=== PATIENT | male | born 1925 | race Caucasian/White ===

== ENCOUNTER 2016-07-03 21:00 | Observation (INO) ==
[2016-07-03] MEDS ORDERED: NITROGLYCERIN SL 0.4 MG TABLET SL STA (21:37)
[2016-07-03 22:05] LABS: Basophils % 0.7 % (0.0-0.8); Eosinophils # 0.2 10*3/uL (0.0-0.87); Eosinophils % 3.8 % (0.00-10.9); Hematocrit 36.8 VOL% (42.0-52.0); Hemoglobin 12.4 GM/DL (14.0-18.0); Immature Granulocytes % 0.2 %; Immature Granulocytes Absolute 0.01 #; Lymphocytes # 1.2 10*3/uL (1.4-4.0); Lymphocytes % 26.5 % (21.2-54.2); Mean Corpuscular HGB Conc 33.7 GM/DL (32-36); Mean Corpuscular Hemoglobin 32 PG (27-34); Mean Corpuscular Volume 93.4 FL (87-102); Mean Platelet Volume 11.6 FL (9.6-12.0); Monocytes # 0.5 10*3/uL (0.11-0.8); Monocytes % 10.8 % (1.7-12.7); NRBC # 0.02 10*3/uL; Neutrophils # 2.6 10*3/uL (1.4-7.4); Platelet Count 179 T/CUMM (130-400); Red Blood Count 3.94 MC/CUMM (3.8-5.5); Red Cell Distribution Width 13.3 % (9.3-17.3); White Blood Count 4.5 T/CUMM (4-12)
[2016-07-03 22:23] LABS: Calcium 9.2 MG/DL (8.5-10.1); Osmolality,Calculated 287.7 MOS/KG (273-304); Potassium 4.6 MMOL/L (3.5-5.1)
[2016-07-03 22:26] LABS: Troponin I Only 0.03 NG/ML (0.00-0.045)
[2016-07-03] MEDS ORDERED: NITROGLYCERIN 2% OINT 1 INCH/GM PACK TOP STA (23:25)
[2016-07-03] MEDS ORDERED: NITROGLYCERIN 2% OINT 1 INCH/GM PACK TOP ONE (23:27)
[2016-07-03] MEDS ORDERED: MAGNESIUM SULF RIDER 4 GM in PREMIX 1 EACH IV PRN (23:36)
[2016-07-03] MEDS ORDERED: GLUCAGON 1 MG VIAL IM PRN (23:36)
[2016-07-03] MEDS ORDERED: DEXTROSE 50% 25 GM/50 ML VIAL IV PRN (23:36)
[2016-07-03] MEDS ORDERED: MAGNESIUM SULF RIDER 2 GM in PREMIX 1 EACH IV PRN (23:36)
[2016-07-03] MEDS ORDERED: ONDANSETRON 4 MG/2 ML VIAL IV PRN (23:36)
--- NOTE | 2016-07-03 23:47 | Emergency Department Note ---
Miguel Angel Carbajal Manpreet, am scribing for, and in the presence of, Diana Baez DO 21:54. ISasha Whitney, DO, personally performed the services described in this documentation, ascribed by Collin Micehlle in my presence, and it is both accurate and complete [id number] . Arrival - Arrival Chief Complaint: Chest Pain Stated Complaint: chest pains ED Nursing Triage Note: c/o left chest wall pain that radiates to let arm. denies n/v. had mi with one stent placed in 2016. has taken 2 nitro with relief. Mode of Arrival: Wheelchair Limitations: No Limitations Source: Patient Time Seen by Provider: 07/03/16 21:36 - History of Present Illness HPI Narrative: Pt is a 89 y/o male, with PMHx of CHF, CAD, HTN, UT, IDDM, and Dyslipidemia, who reports to the ED with CC of chest pressure radiating to LUE at 1930. He reports the pain has been intermittent but is now sore and still having bouts of pain. Denies nausea, SOB, or diaphoresis. Pt was in hospital for UT 3 months ago and states the pain is similar to his previous episode of UT but with the pain is more severe this time. Pt denies Abd pain, nausea, and fever. Pt is complaint with his medications and takes an ASA qd. Nitro has relieved his pain earlier today x2. He is still reporting chest soreness. No other pains, complaints reported to ED. Onset (ago): hour(s) Consistency: constant Severity: moderate, severe Severity scale (1-10): 4 Quality: other (Pressurized) Allergies/Adverse Reactions: Allergies Allergy/AdvReac Type Severity Reaction Status Date / Time No Known Allergies Allergy Unverified 03/03/16 22:45 Home Medications: Home Medications Medication Instructions Recorded Confirmed Type Carvedilol [Coreg] 6.25 mg PO BID 03/03/16 03/03/16 History Ezetimibe [Zetia] 10 mg PO DAILY 03/03/16 03/03/16 History Gabapentin 300 mg PO DAILY 03/03/16 03/03/16 History Lisinopril 20 mg PO DAILY 03/03/16 03/03/16 History Aspirin EC Tab 81 mg PO DAILY #30 tablet 03/07/16 Rx Isosorbide Mononitrate [Imdur] 30 mg PO DAILY #30 tablet 03/07/16 Rx Nitroglycerin Sl Tab [Nitrostat] 0.4 mg SL Q5M PRN #1 bottle 03/07/16 Rx Ranolazine [Ranexa] 500 mg PO BID #60 tablet 03/07/16 Rx Spironolactone [Aldactone] 25 mg PO DAILY #30 tablet 03/07/16 Rx Ticagrelor [Brilinta] 90 mg PO BID #60 tablet 03/07/16 Rx Review of System - Review of System 12 point system: reviewed and no additional remarkable complaints except as stated - Review of System Constitutional: Absent: chills, diaphoresis, fever Respiratory: Present: respiratory distress. Absent: cough Cardiovascular: Present: chest pain Gastrointestinal: Absent: abdominal pain, nausea, vomiting, diarrhea Musculoskeletal: Present: arm pain (Right arm pain). Absent: back pain Neurological: Absent: headache, weakness Medical,Surgical,& Family Hx - Medical History Cardio: History of: CHF, CAD, Hypertension, UT (10 years ago), PVD Endocrine: History of: Diabetes Mellitus (IDDM), Dyslipidemia Respiratory: History of: Bronchitis Other: History of: Cancer (skin cancer removed) - Surgical History HEENT Surgeries: Surgical HX of: Eye Surgery (cataracts removed) Abdominal Surgeries: Surgical HX of: Appendectomy, Cholecystectomy, Hernia Repair - Social History Smoking Status: Never smoker Frequency of Alcohol Use: None Type of Drug Use: None Exam Vital Signs: Vital Signs Temperature 98.0 F 07/03/16 21:09 Pulse Rate 7 L 07/03/16 21:09 Respiratory Rate 20 07/03/16 21:09 Blood Pressure 202/90 07/03/16 21:09 O2 Sat by Pulse Oximetry 99 07/03/16 21:09 - General Exam limited due to: ALOC General appearance: alert, in no apparent distress - Head Head exam: Present: atraumatic, normocephalic, normal inspection - Eye Eye exam: Present: normal appearance, PERRL, EOMI - ENT ENT exam: Present: normal exam, normal oropharynx, mucous membranes moist, TM's normal bilaterally - Neck Neck exam: Present: normal inspection, full ROM, trachea midline. Absent: tenderness - Chest Chest inspection: Present: normal inspection, symmetric chest wall rise. Absent : tenderness - Respiratory Respiratory exam: Present: normal lung sounds bilaterally. Absent: accessory muscle use, rales, respiratory distress, wheezes - Cardiovascular Cardiovascular exam: Present: regular rate, normal rhythm, normal heart sounds. Absent: murmur, rubs, gallop - Abdominal Exam Abdominal exam: Present: soft, normal bowel sounds. Absent: distention, tenderness, guarding - Extremities Exam Extremities exam: Present: full ROM. Absent: normal inspection, tenderness - Expanded Upper Left Upper Extremity Arm exam: Present: ecchymosis Forearm/Wrist exam: Present: ecchymosis - Back Exam Back exam: Present: normal inspection, full ROM. Absent: tenderness - Neurological Exam Neurological exam: Present: alert, oriented X3, CN II-XII intact - Psychiatric Psychiatric exam: Present: normal affect, normal mood - Skin Skin exam: Present: warm, dry, intact, normal color. Absent: pallor Course Course Narrative: Concern for unstable angina versus true ACS and STEMI. Lab work shows troponin negative. However he did have another chest pain episode in the ED which was witnessed by the nurses looked very concerning his heart rate and blood pressure went elevated. He did respond to nitroglycerin. We will apply nitro paste. He will be admitted to Dr. Chu the runstitching machine operator on-call. He currently takes Carvediolol 2 times a day. Will be admitted - Reevaluation(s) Reevaluation #1: Patient is currently having chest pain. Looks very uncomfortable blood pressure and heart rate are elevated will give nitro nitroglycerin does relieve pain. Results - Labs CBC & BMP: 07/03/16 21:38 07/03/16 21:38 Lab Results: I have reviewed the patients labs Labs: Laboratory Tests 07/03/16 21:38 WBC 4.5 RBC 3.94 Hgb 12.4 L Hct 36.8 L Lymph # (Auto) 1.2 L Laboratory Tests 07/03/16 21:38 Sodium 138 Potassium 4.6 Chloride 104 Carbon Dioxide 26 BUN 21 H Creatinine 1.40 H Glucose 273 H - EKG EKG results: interpreted by ERMD - Impressions Patient is in sinus rhythm. He has Q waves in the inferior leads. ST depression in V3 V4 with no reciprocal changes noted. - Diagnostic Findings Procedure: Chest x-ray: image reviewed by me, report reviewed by me (No acute abnormalities) Disposition Clinical Impression: Unstable angina pectoris Case discussed with: patient Disposition: Still a Patient Condition: Stable
[2016-07-04 01:49] LABS: Risk Ratio 2.68; VLDL CHOLESTEROL 25.8 MG/DL
--- NOTE | 2016-07-04 06:53 | XRay Report ---
History: Chest pain Date: 07/03/2016 Study: Chest x-ray single view portable Comparison exam: March 04, 2016 chest x-ray There is mild cardiomegaly. The mediastinal contours are unchanged. The pulmonary vasculature is not engorged. There is some chronic lung disease in the apices. There is no definite acute infiltrate. There are probable underlying emphysematous changes. There is no gross pleural effusion. Osseous structures are similar. Impression: No definite acute process. Stable mild cardiomegaly. Chronic lung changes PROCEDURE INTERPRETED AT [facility] DEPARTMENT OF RADIOLOGY Final Report Signed by: Dr. Aster English
--- NOTE | 2016-07-04 07:52 | EKG Report ---
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
[2016-07-04] MEDS: PANTOPRAZOLE 40 MG TABLET PO SCH (08:43)
[2016-07-04] MEDS: ENOXAPARIN 40 MG/0.4 ML SYRINGE SUBCUT SCH (08:43)
--- NOTE | 2016-07-04 08:58 | EKG Report ---
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
[2016-07-04 09:22] LABS: Basophils # 0.1 10*3/uL (0.0-0.2); Basophils % 0.9 % (0.0-0.8); Eosinophils # 0.2 10*3/uL (0.0-0.87); Eosinophils % 4.2 % (0.00-10.9); Hematocrit 35.7 VOL% (42.0-52.0); Hemoglobin 12.1 GM/DL (14.0-18.0); Immature Granulocytes % 0.4 %; Immature Granulocytes Absolute 0.02 #; Lymphocytes # 1.2 10*3/uL (1.4-4.0); Lymphocytes % 21.7 % (21.2-54.2); Mean Corpuscular HGB Conc 33.9 GM/DL (32-36); Mean Corpuscular Hemoglobin 32 PG (27-34); Mean Corpuscular Volume 93.9 FL (87-102); Mean Platelet Volume 11.1 FL (9.6-12.0); Monocytes # 0.5 10*3/uL (0.11-0.8); Monocytes % 9.6 % (1.7-12.7); Neutrophils # 3.4 10*3/uL (1.4-7.4); Neutrophils % 63.2 % (38.7-73.9); Platelet Count 167 T/CUMM (130-400); Red Cell Distribution Width 13.2 % (9.3-17.3); White Blood Count 5.4 T/CUMM (4-12)
[2016-07-04 09:51] LABS: Calcium 8.5 MG/DL (8.5-10.1); Osmolality,Calculated 285.4 MOS/KG (273-304); Potassium 4.9 MMOL/L (3.5-5.1)
[2016-07-04] MEDS ORDERED: NITROGLYCERIN SL 0.4 MG TABLET SL PRN (10:37)
--- NOTE | 2016-07-04 11:35 | Cardiology History & Physical ---
Assessment and Plan - Time spent with patient Time spent with patient: Greater than 30 minutes (1) Chest pain Status: Acute Assessment and plan: See plan of care listed Current Visit: No (2) Hypertension Status: Chronic Assessment and plan: See plan of care listed Current Visit: No (3) Diabetes Status: Chronic Assessment and plan: See plan of care listed Current Visit: No (4) Hyperlipidemia Status: Chronic Assessment and plan: See plan of care listed Current Visit: No (5) Coronary artery arteriosclerosis Status: Chronic Assessment and plan: See plan of care listed Current Visit: No (6) Ischemic cardiomyopathy Status: Chronic Assessment and plan: See plan of care listed Current Visit: No History of Present Illness Chief complaint: Chest pain, known coronary artery disease History of present illness: 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 REES PCP: DR. CORONA Jeanne Mariano, 89WM, routinely followed by Dr. Rees. He was last seen in cardiology clinic June 02, 2016. Risk factors include: Advanced age, known coronary artery disease (status post PCI to the ostial/proximal LAD March 04, 2016), hypertension, dyslipidemia, sedentary lifestyle. History of ischemic cardiomyopathy, EF 35%, grade 3/4 diastolic dysfunction, mild MR. PAP 54 mmHg. Patient was hospitalized in February 2016 with NST ANDRES. He was taken to the cardiac catheterization lab where the culprit lesion (LAD) was addressed with stenting. Dr. Pavon was consulted and was considered a poor candidate for CABG. Medical management has ensued due to the complexity of the anatomy and heart disease. Yesterday, patient reports he began to feel somewhat bloated across the abdomen area. He was having no chest pain, heaviness, tightness or shortness of breath at that time. Yesterday afternoon, he had an outing at [facility] with his family. When he got home last evening, he began to experience sharp shooting pain intermittently located from the left upper chest area radiating to the right upper chest area. The pain was very intense and it took his breath away. He states this lasted approximately 1 hour intermittently. Walking does not reproduce the discomfort, he can identify no alleviating factors. He is currently chest pain free. He is unable to rate the discomfort on a scale of 1- 10. He was concerned this may be his heart because the symptoms were similar to the discomfort in February 2016 when he required stenting. Troponin minimally elevated. EKG, as compared to June 02, 2016 from [facility], reveals no significant change. He has continued to take his ASA/Brilinta without fail. Blood pressure was significantly elevated on arrival. At one point, he was taking RANDA but this was stopped several weeks ago due to hypotension per patient report. Chest pain is reproducible to palpation left chest area. Taut area noted to palpation. Patient assures me this is the same pain he experienced which brought him to the ER. Reported history of transaminitis while taking lipid lowering agents therefor maintained on Zetia. ASSESSMENT/PLAN: 1. CHEST PAIN - chest pain is reproducible to light palpation and concerning for musculoskeletal component. Will treat with Neurontin, tramadol and acetaminophen. 2. KNOWN CAD S/P PCI LAD -continue Aspirin and Brilinta. Continue beta- mily. Will start low-dose RANDA inhibitor prior to discharge if BP will allow after restarting betablocker. 3. HYPERTENSION - adjust meds accordingly during hospital stay 4. DYSLIPIDEMIA - statin intolerant. Will add to allergies. Continue Zetia. No need to repeat lipid profile as Dr. Rees follows this outpatient. 5. ICM - EF 35%. At discharge, patient may need a as needed diuretic. 6. DIABETES - continue sliding scale. 7. ADVANCED AGE - continue current plan of senior care Medications Medication Instructions Recorded Confirmed Type Carvedilol [Coreg] 6.25 mg PO BID 03/03/16 07/04/16 History Ezetimibe [Zetia] 10 mg PO DAILY 03/03/16 07/04/16 History Gabapentin 300 mg PO DAILY 03/03/16 07/04/16 History Aspirin EC Tab 81 mg PO DAILY #30 tablet 03/07/16 07/04/16 Rx Isosorbide Mononitrate [Imdur] 30 mg PO DAILY #30 tablet 03/07/16 07/04/16 Rx Nitroglycerin Sl Tab [Nitrostat] 0.4 mg SL Q5M PRN #1 bottle 03/07/16 07/04/16 Rx Ranolazine [Ranexa] 500 mg PO BID #60 tablet 03/07/16 07/04/16 Rx Spironolactone [Aldactone] 25 mg PO DAILY #30 tablet 03/07/16 07/04/16 Rx Ticagrelor [Brilinta] 90 mg PO BID #60 tablet 03/07/16 07/04/16 Rx Insulin Aspart Prot/Asp 70/30 25 units SUBCUT AC BREAKFAST 07/04/16 07/04/16 History [NovoLOG Mix 70/30] Allergies Allergy/AdvReac Type Severity Reaction Status Date / Time No Known Allergies Allergy Unverified 03/03/16 22:45 Review of systems: REVIEW OF SYSTEMS: - Constitutional Constitutional: Absent: syncope, anorexia, night sweats - EENT Eyes: Absent: blurry vision, loss of vision, diplopia Ears: Absent: decreased hearing, ear pain, ear discharge - Cardiovascular Cardiovascular: Present: chest pain with palpation. Denies chest pain with exertion. Denies edema, palpitations. Absent: chest pain with deep breath, claudication - Respiratory Respiratory: Present: Recent LEVIN, denies cough. Absent: wheezing, hemoptysis, change in phlegm color - Gastrointestinal Gastrointestinal: Denies constipation. Absent: abdominal pain, hematemesis, hematochezia, melena, change in bowel habits, nausea - Genitourinary Genitourinary: Absent: difficulty urinating, dysuria, urinary hesitancy, flank pain - Musculoskeletal Musculoskeletal: Present: back pain Absent: joint swelling, muscle cramps, muscle weakness - Neurological Neurological: Present: normal gait without frequent falls. Absent: dizziness, hemiparesis - Psychiatric Psychiatric: Absent: anxiety, depression, difficulty concentrating - Endocrine Endocrine: Present: fatigue. Absent: cold intolerance, heat intolerance, polyuria, polyphagia, polydipsia - Hematologic/Lymphatic Hematologic/Lymphatic: Present: easy bruising. Absent: easy bleeding, easy bruisability -Integumentary Integumentary: Absent: lesions, rashes, skin breakdown Medical,Surgical,& Family Hx - Medical History Cardio: History of: CHF, CAD, Hypertension, NV (10 years ago), PVD Endocrine: History of: Diabetes Mellitus (IDDM), Dyslipidemia Respiratory: History of: Bronchitis Other: History of: Cancer (skin cancer removed) - Surgical History HEENT Surgeries: Surgical HX of: Eye Surgery (cataracts removed) Abdominal Surgeries: Surgical HX of: Appendectomy, Cholecystectomy, Hernia Repair - Social History Smoking Status: Never smoker Have you smoked in the last 12 months: No Frequency of Alcohol Use: None Type of Drug Use: None Marital Status: Lives With:: Alone Functional capacity: independent ambulation Cardiology Physical Exam - Constitutional Vitals: Vital Signs Temp Pulse Resp BP Pulse Ox 97.8 F 58 L 20 178/81 97 07/04/16 08:00 07/04/16 08:00 07/04/16 09:22 07/04/16 08:00 07/04/16 04:00 Intake and Output 07/03/16 07/04/16 07/04/16 23:59 07:59 15:59 Output Total 200 / 200 Balance -200 / -200 Output: Urine 200 / 200 Other: Weight 78.471 kg Patient Weight 07/04/16 23:59 Weight 78.471 kg Exam: General: [Appears well with no apparent distress.] [Pleasant and cooperative. ] [Appears comfortable.] HEENT: [Bilateral arcus noted, normocephalic, atraumatic. Mucous membranes moist. No jaundice noted. Conjunctiva moist and clear, sclerae anicteric] Neck: No JVD/HJR, no thyromegaly or lymphadenopathy noted. Cardiac: [Regular rate and rhythm.] [No murmur rub or gallop.] Chest pain reproducible to light palpation left chest area. Lungs: [Clear to auscultation without accessory muscle use to assist the respiratory pattern.] Not requiring oxygen Abdomen: Soft, bowel sounds normoactive. Nontender and nondistended. No abdominal bruit or thrill noted. No masses noted. Musculoskeletal: No fluid collection. Decreased range of motion is noted. Extremities: No clubbing, cyanosis noted. [ No edema noted.] Upper extremity pulses 2+. Lower extremity pulses 2+. Capillary refill less than 3 seconds. Skin: No unusual lesions or rashes. No skin breakdown appreciated. Neuro: Awake, alert and oriented 3. Moves all extremities well without hemiparesis or paralysis. No essential tremor is appreciated. Result/EKG - Labs CBC & BMP: 07/04/16 09:08 07/04/16 09:08 Lab Results: I have reviewed the past 24 hour labs Labs: Laboratory Results - last 24 hr 07/04/16 07/04/16 07/04/16 01:07 01:07 09:08 WBC RBC Hgb Hct MCV MCH MCHC RDW Plt Count MPV Neut % (Auto) Lymph % (Auto) [place] % (Auto) Eos % (Auto) Baso % (Auto) Neut # (Auto) Lymph # (Auto) [place] # (Auto) Eos # (Auto) Baso # (Auto) Immature Gran % Nucleated RBC % Immature Gran # Nucleated RBCs # Sodium Potassium Chloride Carbon Dioxide Anion Gap BUN Creatinine GFR Calculation BUN/Creatinine Ratio Glucose Calculated Osmolality Calcium Magnesium Troponin I 0.048 H D 0.050 H Triglycerides 129 Cholesterol 182 LDL Cholesterol 106.0 VLDL Cholesterol 25.8 HDL Cholesterol 68 H Heart Disease Risk Ratio 2.68 07/04/16 07/04/16 09:08 09:08 WBC 5.4 RBC 3.80 Hgb 12.1 L Hct 35.7 L MCV 93.9 MCH 32 MCHC 33.9 RDW 13.2 Plt Count 167 MPV 11.1 Neut % (Auto) 63.2 Lymph % (Auto) 21.7 [place] % (Auto) 9.6 Eos % (Auto) 4.2 Baso % (Auto) 0.9 H Neut # (Auto) 3.4 Lymph # (Auto) 1.2 L [place] # (Auto) 0.5 Eos # (Auto) 0.2 Baso # (Auto) 0.1 Immature Gran % 0.4 Nucleated RBC % 0.0 Immature Gran # 0.02 Nucleated RBCs # 0.00 Sodium 140 Potassium 4.9 Chloride 104 Carbon Dioxide 28 Anion Gap 12.9 BUN 15 Creatinine 1.20 GFR Calculation 56 BUN/Creatinine Ratio 12.00 Glucose 209 H Calculated Osmolality 285.4 Calcium 8.5 Magnesium 2.0 Troponin I Triglycerides Cholesterol LDL Cholesterol VLDL Cholesterol HDL Cholesterol Heart Disease Risk Ratio - Diagnostic Findings Procedure: Chest x-ray: report reviewed by me - EKG EKG results: interpreted by mn EKG shows: sinus rhythm
[2016-07-04] MEDS: RANOLAZINE 500 MG TABLET PO SCH ×2 (12:29→20:39)
[2016-07-04] MEDS: CARVEDILOL 6.25 MG TABLET PO SCH ×2 (12:30→20:39)
[2016-07-04] MEDS: SPIRONOLACTONE 25 MG TABLET PO SCH (12:30)
[2016-07-04] MEDS: TICAGRELOR 90 MG TABLET PO SCH ×2 (12:30→20:39)
[2016-07-04] MEDS: ISOSORBIDE MONONITRATE 30 MG TABLET PO SCH (12:30)
[2016-07-04] MEDS: ASPIRIN EC 81 MG TABLET PO SCH (12:30)
[2016-07-04] MEDS: ACETAMINOPHEN 325 MG TABLET PO SCH ×2 (12:30→20:39)
[2016-07-04] MEDS: traMADol 50 MG TABLET PO SCH ×2 (12:30→20:40)
[2016-07-04] MEDS: EZETIMIBE 10 MG TABLET PO SCH (12:31)
[2016-07-04] MEDS: GABAPENTIN 300 MG CAPSULE PO SCH (12:31)
[2016-07-05 05:32] LABS: Basophils # 0.1 10*3/uL (0.0-0.2); Eosinophils # 0.3 10*3/uL (0.0-0.87); Eosinophils % 5.1 % (0.00-10.9); Hematocrit 34.3 VOL% (42.0-52.0); Hemoglobin 11.6 GM/DL (14.0-18.0); Immature Granulocytes % 0.2 %; Immature Granulocytes Absolute 0.01 #; Lymphocytes # 1.5 10*3/uL (1.4-4.0); Mean Corpuscular HGB Conc 33.8 GM/DL (32-36); Mean Corpuscular Hemoglobin 32 PG (27-34); Mean Corpuscular Volume 94.2 FL (87-102); Mean Platelet Volume 11.4 FL (9.6-12.0); Monocytes # 0.6 10*3/uL (0.11-0.8); Monocytes % 11.1 % (1.7-12.7); Neutrophils # 2.7 10*3/uL (1.4-7.4); Neutrophils % 52.6 % (38.7-73.9); Platelet Count 159 T/CUMM (130-400); Red Blood Count 3.64 MC/CUMM (3.8-5.5); White Blood Count 5.1 T/CUMM (4-12)
[2016-07-05 05:58] LABS: Calcium 8.3 MG/DL (8.5-10.1); Magnesium 2.2 MG/DL (1.8-2.4); Osmolality,Calculated 284.5 MOS/KG (273-304); Potassium 4.6 MMOL/L (3.5-5.1)
[2016-07-05] MEDS ORDERED: INSULIN ASPART PROTAMINE/ASPART 70/30 100 UNIT/ML SUBCUT SCH (07:30)
[2016-07-05 08:06] VITALS: BP 150/69
--- NOTE | 2016-07-05 10:05 | Discharge Summary ---
Hospital Course - Hospital Course Hospital Course: SQUIRREL MAN: DR. REES PCP: DR. TOBAR Mr. Mariano, 89WM, routinely followed by Dr. Rees. He was last seen in cardiology clinic June 02, 2016. Risk factors include: Advanced age, known coronary artery disease (status post PCI to the ostial/proximal LAD March 04, 2016), hypertension, dyslipidemia, sedentary lifestyle. History of ischemic cardiomyopathy, EF 35%, grade 3/4 diastolic dysfunction, mild MR. PAP 54 mmHg. Patient was hospitalized in February 2016 with NST ANDRES. He was taken to the cardiac catheterization lab where the culprit lesion (LAD) was addressed with stenting. Dr. Pavon was consulted and was considered a poor candidate for CABG. Medical management has ensued due to the complexity of the anatomy and heart disease. July 03, 2016 patient presented to the emergency department with sharp shooting chest pain reproducible to light palpation. He was extremely hypertensive at that time as well. Cardiac biomarkers were stable, EKG was unremarkable compared to the June 02, 2016 EKG from [facility]. Patient was treated with Tylenol, tramadol and Neurontin for the chest wall pain. Overnight, he is markedly better. Blood pressure has normalized at this time as well. He continues to take aspirin and Brilinta without fail. Labs are stable this morning as well as vital signs. He has been ambulating without difficulty and he is anxious for release home. Having felt him at maximal medical therapy, patient is being discharged home in stable condition. Patient will keep his current follow-up appoint with Dr. Rees. We will arrange Home Health for several weeks to assist with medication administration and monitoring of vital signs. In addition to his usual home medications, patient will be given a prescription for the following new medications: Acetaminophen 325 mg 1 p.o. twice daily 7 day Tramadol 50 mg 1 p.o. twice daily 7 days - Time spent with patient Time with patient DS: Less than 30 minutes Diagnosis - Discharge Diagnosis (1) Chest pain Status: Resolved (2) Hypertension Status: Chronic (3) Diabetes Status: Chronic (4) Hyperlipidemia Status: Chronic (5) Coronary artery arteriosclerosis Status: Chronic (6) Ischemic cardiomyopathy Status: Chronic Specialty Discharge - Follow Up or Referrals Follow up with: rOi Rees MD [Physician] - (Please have patient keep his current follow-up appointment with Dr. Rees. ) Discharge Plan - Discharge Data Disposition: Disch To Home/Self Care Discharge Diet: heart healthy Activity: resume usual activities as tolerated Hygiene: no restrictions Weight Bearing at Discharge: full weight bearing Driving: no restrictions Contact your physician if you experience:: fever over 101, Difficulty voiding, Redness or swelling, Nausea/Vomiting, Shortness of breath, Bleeding, pain uncontrolled by pain medications - Discharge Medications New Acetaminophen Tab [Tylenol Tab] 325 mg PO BID #14 tablet traMADol TAB [Ultram] 50 mg PO BID #14 tablet Continue Ezetimibe [Zetia] 10 mg PO DAILY Carvedilol [Coreg] 6.25 mg PO BID Gabapentin 300 mg PO DAILY Spironolactone [Aldactone] 25 mg PO DAILY #30 tablet Insulin Aspart Prot/Asp 70/30 [NovoLOG Mix 70/30] 25 units SUBCUT AC BREAKFAST Aspirin EC Tab 81 mg PO DAILY #30 tablet Isosorbide Mononitrate [Imdur] 30 mg PO DAILY #30 tablet Nitroglycerin Sl Tab [Nitrostat] 0.4 mg SL Q5M PRN #1 bottle PRN Reason: Chest Pain Ranolazine [Ranexa] 500 mg PO BID #60 tablet Ticagrelor [Brilinta] 90 mg PO BID #60 tablet - Follow Up or Referral - Forms/Instructions Additional Discharge Instructions: Please arrange home health today. Needs medication management and vital signs checks for two to three weeks. Exam - Constitutional Vitals: Period Temp Pulse Resp BP Sys/Barry Pulse Ox Last 24 Hr 96.7 F-98.1 F 50-57 16-20 108-155/59-71 98-100 Exam: General: [Appears well with no apparent distress.] [Pleasant and cooperative. ] [Appears comfortable.] HEENT: [PERRL, normocephalic, atraumatic. Mucous membranes moist. No jaundice noted. Conjunctiva moist and clear, sclerae anicteric] Neck: No JVD/HJR, no thyromegaly or lymphadenopathy noted. No carotid bruit appreciated Cardiac: [Regular rate and rhythm.] [No murmur rub or gallop.] Lungs: [Clear to auscultation without accessory muscle use to assist the respiratory pattern.] Not requiring oxygen. Abdomen: Soft, bowel sounds normoactive. Nontender and nondistended. No abdominal bruit or thrill noted. No masses noted. Musculoskeletal: No fluid collection. Decreased range of motion is noted. Extremities: No clubbing, cyanosis noted. [ No edema noted.] Upper extremity pulses 2+. Lower extremity pulses 2+. Capillary refill less than 3 seconds. Skin: No unusual lesions or rashes. No skin breakdown appreciated. Neuro: Awake, alert and oriented 3. Moves all extremities well without hemiparesis or paralysis. No essential tremor is appreciated. Discharge Results Procedures and tests throughout hospitalization: Pending Orders 07/06/16 04:00 BMP w/ Mg [Basic Metabolic Panel w/Mg] IN AM CBC [Comp Blood Count Auto Diff] IN AM 07/07/16 04:00 BMP w/ Mg [Basic Metabolic Panel w/Mg] IN AM CBC [Comp Blood Count Auto Diff] IN AM 07/08/16 04:00 BMP w/ Mg [Basic Metabolic Panel w/Mg] IN AM CBC [Comp Blood Count Auto Diff] IN AM Labs on day of discharge: Labs from last 24 hours 07/05/16 07/05/16 07/05/16 08:05 05:04 05:04 WBC 5.1 RBC 3.64 L Hgb 11.6 L Hct 34.3 L MCV 94.2 MCH 32 MCHC 33.8 RDW 13.0 Plt Count 159 MPV 11.4 Neut % (Auto) 52.6 Lymph % (Auto) 30.0 [place] % (Auto) 11.1 Eos % (Auto) 5.1 Baso % (Auto) 1.0 H Neut # (Auto) 2.7 Lymph # (Auto) 1.5 [place] # (Auto) 0.6 Eos # (Auto) 0.3 Baso # (Auto) 0.1 Immature Gran % 0.2 Nucleated RBC % 0.0 Immature Gran # 0.01 Nucleated RBCs # 0.00 Sodium 139 Potassium 4.6 Chloride 104 Carbon Dioxide 29 Anion Gap 10.6 BUN 18 Creatinine 1.30 GFR Calculation 51 BUN/Creatinine Ratio 13.00 Glucose 215 H POC Glucose 225 H Calculated Osmolality 284.5 Calcium 8.3 L Magnesium 2.2 Troponin I 07/04/16 15:29 WBC RBC Hgb Hct MCV MCH MCHC RDW Plt Count MPV Neut % (Auto) Lymph % (Auto) [place] % (Auto) Eos % (Auto) Baso % (Auto) Neut # (Auto) Lymph # (Auto) [place] # (Auto) Eos # (Auto) Baso # (Auto) Immature Gran % Nucleated RBC % Immature Gran # Nucleated RBCs # Sodium Potassium Chloride Carbon Dioxide Anion Gap BUN Creatinine GFR Calculation BUN/Creatinine Ratio Glucose POC Glucose Calculated Osmolality Calcium Magnesium Troponin I 0.045 - Imaging and Cardiology Cardiology Procedure: report reviewed by me Procedure: Chest x-ray: report reviewed by me DS: Provider Date of admission: 07/03/16 23:36 Primary care physician: Kings Tobar MD Attending physician on admission: Myles Arthur Consults: 07/04/16 01:12 Consult to Pastoral Services [CONS] Routine Comment: Pastoral Screen: Request Perfume Maker Visit Pastoral Screen Source of Request: Patient Discharging clinician: Mary Pierson NP Expected date of discharge: 07/05/16
[2016-07-05] MEDS: ENOXAPARIN 40 MG/0.4 ML SYRINGE SUBCUT SCH (10:33)
[2016-07-05] MEDS: ACETAMINOPHEN 325 MG TABLET PO SCH (10:34)
[2016-07-05] MEDS: GABAPENTIN 300 MG CAPSULE PO SCH (10:35)
[2016-07-05] MEDS: EZETIMIBE 10 MG TABLET PO SCH (10:35)
[2016-07-05] MEDS: ASPIRIN EC 81 MG TABLET PO SCH (10:35)
[2016-07-05] MEDS: RANOLAZINE 500 MG TABLET PO SCH (10:35)
[2016-07-05] MEDS: ISOSORBIDE MONONITRATE 30 MG TABLET PO SCH (10:35)
[2016-07-05] MEDS: PANTOPRAZOLE 40 MG TABLET PO SCH (10:35)
[2016-07-05] MEDS: SPIRONOLACTONE 25 MG TABLET PO SCH (10:35)
[2016-07-05] MEDS: traMADol 50 MG TABLET PO SCH (10:35)
[2016-07-05] MEDS: TICAGRELOR 90 MG TABLET PO SCH (10:36)
[2016-07-05] MEDS: CARVEDILOL 6.25 MG TABLET PO SCH (10:36)
== END 2016-07-05 11:39 | disposition home or self-care (01) ==
LOC: N.ED 21:00 → N.EDINP 21:00 → N.TELEN 07-04 00:20
PROVIDERS: ADMIT Internal Medicine Cardiovascular Disease; ATTEND Internal Medicine Cardiovascular Disease

== ENCOUNTER 2017-04-25 01:53 | Inpatient (IN) ==
[2017-04-25] MEDS ORDERED: NITROGLYCERIN 2% OINT 1 INCH/GM PACK TOP STA (02:04)
[2017-04-25] MEDS ORDERED: MORPHINE 2 MG/1 ML SYRINGE IV STA (02:04)
[2017-04-25] MEDS ORDERED: NITROGLYCERIN 2% OINT 1 INCH/GM PACK TOP ONE (02:25)
[2017-04-25] MEDS ORDERED: MORPHINE 2 MG/1 ML SYRINGE ONE (02:26)
[2017-04-25 02:49] LABS: Basophils # 0.1 10*3/uL (0.0-0.2); Basophils % 0.8 % (0.0-0.8); Eosinophils # 0.2 10*3/uL (0.0-0.87); Eosinophils % 2.9 % (0.00-10.9); Hematocrit 38.2 VOL% (42.0-52.0); Hemoglobin 12.6 GM/DL (14.0-18.0); Immature Granulocytes % 0.2 %; Immature Granulocytes Absolute 0.01 #; Lymphocytes # 1.5 10*3/uL (1.4-4.0); Lymphocytes % 22.1 % (21.2-54.2); Mean Corpuscular Hemoglobin 32 PG (27-34); Mean Corpuscular Volume 97.2 FL (87-102); Mean Platelet Volume 11.4 FL (9.6-12.0); Monocytes # 0.4 10*3/uL (0.11-0.8); Monocytes % 6.4 % (1.7-12.7); Neutrophils # 4.4 10*3/uL (1.4-7.4); Neutrophils % 67.6 % (38.7-73.9); Platelet Count 188 T/CUMM (130-400); Red Blood Count 3.93 MC/CUMM (3.8-5.5); Red Cell Distribution Width 13.5 % (9.3-17.3); White Blood Count 6.6 T/CUMM (4-12)
[2017-04-25 03:08] LABS: Albumin 3.7 G/DL (3.4-5.0); Bilirubin,Total 0.5 MG/DL (0.2-1.0); Calcium 8.7 MG/DL (8.5-10.1); Osmolality,Calculated 288.4 MOS/KG (273-304); Potassium 4.7 MMOL/L (3.5-5.1); Total Protein 7.1 G/DL (6.4-8.3)
[2017-04-25] MEDS ORDERED: GLUCAGON 1 MG VIAL IM PRN (05:12)
[2017-04-25] MEDS ORDERED: DEXTROSE 50% 25 GM/50 ML VIAL IV PRN (05:12)
[2017-04-25] MEDS ORDERED: MORPHINE 2 MG/1 ML SYRINGE IV PRN (05:15)
[2017-04-25] MEDS ORDERED: NITROGLYCERIN SL 0.4 MG TABLET SL PRN (05:17)
[2017-04-25 07:53] LABS: Calcium 8.2 MG/DL (8.5-10.1); Osmolality,Calculated 282.4 MOS/KG (273-304); Potassium 4.5 MMOL/L (3.5-5.1); Risk Ratio 2.76; VLDL CHOLESTEROL 12.2 MG/DL
[2017-04-25 07:54] LABS: Albumin 3.2 G/DL (3.4-5.0); Bilirubin,Direct 0.11 MG/DL (0.0-0.20); Bilirubin,Indirect 0.7 MG/DL (0.0-1.0); Bilirubin,Total 0.8 MG/DL (0.2-1.0)
[2017-04-25] MEDS: INSULIN LISPRO 100 UNIT/ML SUBCUT SCH ×4 (08:00→21:58)
[2017-04-25] MEDS ORDERED: ASPIRIN 325 MG TABLET PO SCH (09:00)
[2017-04-25] MEDS ORDERED: ISOSORBIDE MONONITRATE 30 MG TABLET PO SCH (09:00)
[2017-04-25] MEDS ORDERED: RANOLAZINE 500 MG TABLET PO SCH (09:00)
[2017-04-25] MEDS ORDERED: CARVEDILOL 6.25 MG TABLET PO SCH ×2 (09:00)
[2017-04-25] MEDS ORDERED: ACETAMINOPHEN 325 MG TABLET ONE (09:03)
[2017-04-25] MEDS ORDERED: ENOXAPARIN 40 MG/0.4 ML SYRINGE ONE (09:03)
[2017-04-25] MEDS ORDERED: PANTOPRAZOLE 40 MG TABLET PO ONE (09:03)
[2017-04-25] MEDS: ACETAMINOPHEN 325 MG TABLET PO SCH ×2 (09:06→21:56)
[2017-04-25] MEDS: LISINOPRIL 20 MG TABLET PO SCH (09:07)
[2017-04-25] MEDS: EZETIMIBE 10 MG TABLET PO SCH (09:07)
[2017-04-25] MEDS: PANTOPRAZOLE 40 MG TABLET PO SCH (09:07)
[2017-04-25] MEDS: RANOLAZINE 500 MG TABLET PO SCH ×2 (09:09→21:57)
[2017-04-25] MEDS: ASPIRIN EC 81 MG TABLET PO SCH (09:10)
[2017-04-25] MEDS: ENOXAPARIN 40 MG/0.4 ML SYRINGE SUBCUT SCH (09:12)
[2017-04-25 09:26] LABS: Basophils # 0.1 10*3/uL (0.0-0.2); Basophils % 1.1 % (0.0-0.8); Eosinophils # 0.3 10*3/uL (0.0-0.87); Eosinophils % 4.9 % (0.00-10.9); Hematocrit 36.2 VOL% (42.0-52.0); Hemoglobin 11.9 GM/DL (14.0-18.0); Immature Granulocytes % 0.2 %; Immature Granulocytes Absolute 0.01 #; Lymphocytes # 1.6 10*3/uL (1.4-4.0); Lymphocytes % 30.5 % (21.2-54.2); Mean Corpuscular HGB Conc 32.9 GM/DL (32-36); Mean Corpuscular Hemoglobin 32 PG (27-34); Mean Corpuscular Volume 96.8 FL (87-102); Mean Platelet Volume 10.8 FL (9.6-12.0); Monocytes # 0.5 10*3/uL (0.11-0.8); Monocytes % 8.6 % (1.7-12.7); Neutrophils # 2.9 10*3/uL (1.4-7.4); Neutrophils % 54.7 % (38.7-73.9); Platelet Count 175 T/CUMM (130-400); Red Blood Count 3.74 MC/CUMM (3.8-5.5); Red Cell Distribution Width 13.7 % (9.3-17.3); White Blood Count 5.3 T/CUMM (4-12)
[2017-04-25] MEDS: CARVEDILOL 6.25 MG TABLET PO SCH ×2 (10:17→21:57)
[2017-04-25] MEDS: ISOSORBIDE MONONITRATE 30 MG TABLET PO SCH (10:18)
[2017-04-25] MEDS ORDERED: INSULIN GLARGINE 100 UNIT/ML SUBCUT ONE (10:31)
[2017-04-25] MEDS: INSULIN GLARGINE 100 UNIT/ML SUBCUT SCH (10:32)
[2017-04-25] MEDS: amLODIPine 5 MG TABLET PO SCH (14:12)
[2017-04-25] MEDS: GABAPENTIN 100 MG CAPSULE PO SCH ×2 (17:51→21:58)
[2017-04-25] MEDS ORDERED: INSULIN GLARGINE 100 UNIT/ML SUBCUT SCH (21:00)
[2017-04-25] MEDS ORDERED: EZETIMIBE 10 MG TABLET PO SCH (21:00)
[2017-04-25] MEDS: GABAPENTIN 300 MG CAPSULE PO SCH (21:57)
[2017-04-26 05:02] LABS: Basophils # 0.1 10*3/uL (0.0-0.2); Eosinophils # 0.3 10*3/uL (0.0-0.87); Eosinophils % 6.4 % (0.00-10.9); Hematocrit 34.3 VOL% (42.0-52.0); Hemoglobin 11.3 GM/DL (14.0-18.0); Immature Granulocytes % 0.2 %; Immature Granulocytes Absolute 0.01 #; Lymphocytes # 1.4 10*3/uL (1.4-4.0); Lymphocytes % 28.4 % (21.2-54.2); Mean Corpuscular HGB Conc 32.9 GM/DL (32-36); Mean Corpuscular Hemoglobin 32 PG (27-34); Mean Corpuscular Volume 96.9 FL (87-102); Mean Platelet Volume 10.9 FL (9.6-12.0); Monocytes # 0.5 10*3/uL (0.11-0.8); Monocytes % 10.3 % (1.7-12.7); Neutrophils # 2.7 10*3/uL (1.4-7.4); Neutrophils % 53.7 % (38.7-73.9); Platelet Count 176 T/CUMM (130-400); Red Blood Count 3.54 MC/CUMM (3.8-5.5); Red Cell Distribution Width 13.4 % (9.3-17.3)
[2017-04-26 05:35] LABS: Calcium 8.2 MG/DL (8.5-10.1); Osmolality,Calculated 281.3 MOS/KG (273-304); Potassium 4.5 MMOL/L (3.5-5.1)
[2017-04-26] MEDS: INSULIN LISPRO 100 UNIT/ML SUBCUT SCH ×4 (08:39→21:53)
[2017-04-26] MEDS: ENOXAPARIN 40 MG/0.4 ML SYRINGE SUBCUT SCH (08:40)
[2017-04-26] MEDS: INSULIN GLARGINE 100 UNIT/ML SUBCUT SCH ×2 (08:41→08:43)
[2017-04-26] MEDS: CARVEDILOL 6.25 MG TABLET PO SCH ×2 (08:41→21:56)
[2017-04-26] MEDS: ACETAMINOPHEN 325 MG TABLET PO SCH ×2 (08:41→22:01)
[2017-04-26] MEDS: ISOSORBIDE MONONITRATE 30 MG TABLET PO SCH (08:42)
[2017-04-26] MEDS: RANOLAZINE 500 MG TABLET PO SCH ×2 (08:42→22:01)
[2017-04-26] MEDS: EZETIMIBE 10 MG TABLET PO SCH (08:42)
[2017-04-26] MEDS: LISINOPRIL 20 MG TABLET PO SCH (08:42)
[2017-04-26] MEDS: PANTOPRAZOLE 40 MG TABLET PO SCH (08:42)
[2017-04-26] MEDS: ASPIRIN EC 81 MG TABLET PO SCH (08:42)
[2017-04-26] MEDS: amLODIPine 5 MG TABLET PO SCH (08:42)
[2017-04-26] MEDS: GABAPENTIN 100 MG CAPSULE PO SCH ×2 (15:45→21:56)
[2017-04-26] MEDS: GABAPENTIN 300 MG CAPSULE PO SCH (22:01)
[2017-04-27 06:11] LABS: Basophils # 0.1 10*3/uL (0.0-0.2); Basophils % 1.3 % (0.0-0.8); Eosinophils # 0.3 10*3/uL (0.0-0.87); Eosinophils % 5.6 % (0.00-10.9); Hematocrit 31.4 VOL% (42.0-52.0); Hemoglobin 10.3 GM/DL (14.0-18.0); Immature Granulocytes % 0.2 %; Immature Granulocytes Absolute 0.01 #; Lymphocytes # 1.3 10*3/uL (1.4-4.0); Lymphocytes % 26.3 % (21.2-54.2); Mean Corpuscular HGB Conc 32.8 GM/DL (32-36); Mean Corpuscular Hemoglobin 32 PG (27-34); Mean Corpuscular Volume 96.3 FL (87-102); Mean Platelet Volume 11.3 FL (9.6-12.0); Monocytes # 0.5 10*3/uL (0.11-0.8); Monocytes % 9.4 % (1.7-12.7); Neutrophils # 2.8 10*3/uL (1.4-7.4); Neutrophils % 57.2 % (38.7-73.9); Platelet Count 160 T/CUMM (130-400); Red Blood Count 3.26 MC/CUMM (3.8-5.5); Red Cell Distribution Width 13.3 % (9.3-17.3); White Blood Count 4.8 T/CUMM (4-12)
[2017-04-27 06:46] LABS: Calcium 8.2 MG/DL (8.5-10.1); Osmolality,Calculated 285.1 MOS/KG (273-304); Potassium 4.1 MMOL/L (3.5-5.1)
[2017-04-27] MEDS: PANTOPRAZOLE 40 MG TABLET PO SCH (08:49)
[2017-04-27] MEDS: RANOLAZINE 500 MG TABLET PO SCH (08:49)
[2017-04-27] MEDS: EZETIMIBE 10 MG TABLET PO SCH (08:49)
[2017-04-27] MEDS: LISINOPRIL 20 MG TABLET PO SCH (08:49)
[2017-04-27] MEDS: ACETAMINOPHEN 325 MG TABLET PO SCH (08:50)
[2017-04-27] MEDS: amLODIPine 5 MG TABLET PO SCH (08:50)
[2017-04-27] MEDS: ASPIRIN EC 81 MG TABLET PO SCH (08:50)
[2017-04-27] MEDS: ISOSORBIDE MONONITRATE 30 MG TABLET PO SCH (08:50)
[2017-04-27] MEDS: ENOXAPARIN 40 MG/0.4 ML SYRINGE SUBCUT SCH (08:51)
[2017-04-27] MEDS: INSULIN GLARGINE 100 UNIT/ML SUBCUT SCH ×2 (08:51)
[2017-04-27] MEDS: CARVEDILOL 6.25 MG TABLET PO SCH (08:52)
[2017-04-27] MEDS: INSULIN LISPRO 100 UNIT/ML SUBCUT SCH ×2 (11:22→12:15)
[2017-04-27 11:58] VITALS: BP 128/60
== END 2017-04-27 13:58 | disposition home or self-care (01) | DRG 303 ==
LOC: EDUNIT# → EDBD → N.ED 01:53 → N.EDINP 05:10 → N.TELEN 12:35